=== PATIENT | male | born 1955 | race Caucasian/White ===

== ENCOUNTER 2016-10-03 10:34 | Outpatient (CLI) | payer MEDICARE, OTHER ==
[~2016-10-03 10:34] MED LIST: COMBIVENT RESPIMAT IN; DUONEB IN; EQ LORATADINE10 MG PO; FLONASE AL50 MCG/ACT; PERCOCET1 TA1 PO; PROAIR HFA IN; QVAR80 MCG IN; SINGULAIR10 MG PO; SYMBICORT1 AE1 IN
--- NOTE | 2016-10-03 11:21 | DIAGNOSTIC IMAGING REPORT ---
PROCEDURE: XR CHEST 2 VIEW INDICATION: SOB,WHEEZING,ASTHMA,3WEEK FLARE TECHNIQUE: PA and lateral views. COMPARISON: Chest 01/15/2013 and 03/04/2011 FINDINGS: Lungs are clear. Heart and mediastinum are normal. Thorax is normal. IMPRESSION: 1. Negative chest.
== END 2016-10-03 23:00 ==
LOC: LAB SRH 10:34
DX: R06.02 Shortness of breath (principal); R07.9 Chest pain, unspecified
CPT/HCPCS: 90074; 90100; 91320; 91556; 95059